=== PATIENT | male | born 1990 | race Caucasian/White ===

== ENCOUNTER → 2016-10-19 | Outpatient (CLI) | payer OTHER ==
--- NOTE | 2016-10-19 23:42 | MR ---
EXAMINATION TYPE: MR knee RT wo con DATE OF EXAM: 10/19/2016 6:26 PM COMPARISON: NONE HISTORY: 26-year-old female with right Knee pain TECHNIQUE: Multiplanar, multisequence imaging of the right knee is performed without IV contrast. FINDINGS: There is thickening and increased signal along the ACL fibers without laron tear. The PCL is intact. The MCL is markedly thickened, edematous, and fragmentary in appearance. LCL complex is intact There is some degenerative signal at the posterior root of the lateral meniscus without discrete meni scal tear. Overall lateral compartment articular cartilage volume is maintained. Multilocular ganglion cyst is present along the peripheral aspect of the lateral compartment marginat ing the meniscal body and swelling around anteriorly to the anterior horn. This spans up to 4.6 cm AP by 1.0 cm thick by 2.5 cm craniocaudal. Refer to axial image 11 and coronal image 19. However, there is a subchondral curvilinear fracture along the mid weightbearing aspect of the latera l femoral condyle measuring 1.4 cm wide and 2.1 cm AP. There is associated extensive bone marrow karla a within the lateral femoral condyle. Medial meniscus appears intact and overall medial compartment articular cartilage volume is maintaine d. In addition, there is subtle nondisplaced fracture involving the fibular head and adjacent periarticu lar bone marrow edema on the tibial side of the proximal tibiofibular joint. Extensor mechanism intact with a scattered mild soft tissue swelling. There is small knee joint effusion with deep soft tissue edema that could represent some extravasatio n of joint fluid or reactive edema due to underlying osseous injury. There is trace early Ng's cyst. Normal popliteal artery anatomy and muscle bulk. No suspicious bone marrow placement. IMPRESSION: 1. Findings suggest a valgus injury with grade 3 MCL sprain/rupture, large kissing contusions involvi ng the lateral compartment, and associated 1.4 x 2.1 cm nondisplaced subchondral impaction fracture o f the mid weightbearing lateral femoral condyle. 2. Additional contusions at the proximal tibiofibular joint with a nondisplaced fracture of the fibul ar head. 3. Either mucoid degeneration or grade 1 ACL sprain. 4. Multilocular ganglion extending along the periphery of the lateral compartment measuring up to 4.6 cm AP. There is some degenerative signal at the posterior root of the lateral meniscus but otherwise without discrete meniscal tear to help support a parameniscal cyst. 5. Small knee joint effusion and trace early Ng's cyst.
== END | disposition home or self-care (01) ==
LOC: RADMRIMAIN 17:55
PROVIDERS: ATTEND Family Medicine
DX: S72.424A Nondisplaced fracture of lateral condyle of right femur, initial encounter for closed fracture (principal); S82.491A Other fracture of shaft of right fibula, initial encounter for closed fracture; S83.511A Sprain of anterior cruciate ligament of right knee, initial encounter; S80.01XA Contusion of right knee, initial encounter